=== PATIENT | female | born 1975 | race Caucasian/White ===

== ENCOUNTER 2023-04-28 15:11 | Outpatient (CLI) | payer OTHER, SELFPAY ==
--- NOTE | 2023-04-28 15:19 | MM_ITS ---
WS: [id number] Bilateral screening 3D tomosynthesis digital mammogram, 04/28/2023 Clinical Data: SCREENING Comparison: None. Findings: The breast parenchymal pattern shows fibroglandular tissue. No spiculated masses or clustered calcifi cations are seen. There are no secondary signs of carcinoma. There are lymph nodes in both axilla. MM/[id number] Impression: 1. Negative bilateral mammogram unchanged. 2. Recommend annual screening mammograms. BIRADS: 1-Negative FOLLOW UP: 1 Year Follow-up The CAD dry cleaning checker was used.
== END 2023-04-28 15:12 | disposition home or self-care (01) ==
PROVIDERS: PCP Nurse Practitioner Family; Visit Provider Nurse Practitioner Family
DX: Z12.31 Encounter for screening mammogram for malignant neoplasm of breast (principal)
CPT/HCPCS: 77063; 77067

== ENCOUNTER → 2023-09-23 11:06 | Outpatient (BNVA) | payer OTHER, SELFPAY | PROVIDERS: PCP Nurse Practitioner Family; Visit Provider Nurse Practitioner Family | DX: R00.0 Tachycardia, unspecified (principal); R53.83 Other fatigue; E53.8 Deficiency of other specified B group vitamins; D64.9 Anemia, unspecified; Z79.899 Other long term (current) drug therapy; Z13.6 Encounter for screening for cardiovascular disorders; J45.909 Unspecified asthma, uncomplicated | CPT/HCPCS: 80053; 80061; 81003; 82306; 82607; 83036; 84439; 84443; 84481; 85025 ==

== ENCOUNTER → 2023-12-19 13:09 | Outpatient (BNVA) | payer OTHER, SELFPAY | PROVIDERS: PCP Nurse Practitioner Family; Referring Provider Nurse Practitioner Family; Visit Provider Internal Medicine Pulmonary Disease | DX: J45.909 Unspecified asthma, uncomplicated; R06.00 Dyspnea, unspecified | CPT/HCPCS: 36415; 71046; 82785; 86003 ==

== ENCOUNTER 2023-12-27 12:23 | Outpatient (CLI) | payer OTHER, SELFPAY ==
--- NOTE | 2023-12-27 12:43 | ECG_ITS ---
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 Interpretive Statements NAME OF STUDY: TREADMILL STRESS TEST INDICATION: R/O CAD, PROCEDURE: At the baseline, the patient's blood pressure was 107/81 with a heart rate of 95. The baseline electrocardiogram showed normal sinus rhythm with normal ST-Ts.. The patient exercised for 3 minutes and 45 seconds on a standard Tod protocol. Patient attained a maximum heart rate of 155 beats per minute(95% of the maximum predicted heart rate) with a blood pressure at the peak exercise of 169/65 mm Hg. The EKG at the peak exercise revealed some nonspecific ST change. Patient did not have any chest pain or any significant cardiac arrhythmias with the exercise During the recovery phase, there were no new changes. Blood pressure at the end of the recovery phase was 112/59 mm Hg with a heart rate of 100 per minute. CONCLUSION: 1. No significant EKG changes with the treadmill exercise 2. No exercise-induced chest pain or cardiac arrhythmia 3. Impaired exercise tolerance, attained a maximum of 7.0 METs Electronically Signed On 12-31-2023 18:36:35 CDT by Arsenio Tripathi M.D. [email or web address]
[2023-12-27 12:47] VITALS: BMI 34.2
[2023-12-27 13:15] VITALS: BP 124/60; PULSE 99
== END 2023-12-27 12:24 | disposition home or self-care (01) ==
LOC: CDL 12:24
PROVIDERS: PCP Nurse Practitioner Family; Visit Provider Internal Medicine Pulmonary Disease
DX: Z01.89 Encounter for other specified special examinations (principal)
CPT/HCPCS: 93017

== ENCOUNTER 2024-01-26 06:59 | Outpatient (CLI) | payer OTHER, SELFPAY ==
[2024-01-26 07:31] VITALS: PULSE 77; RESP 18; O2SAT 98
[2024-01-26] MEDS: albuterol 2.5 mg/3 mL Neb INHALATION (07:31)
[2024-01-26 07:36] VITALS: PULSE 79
== END 2024-01-26 07:00 | disposition home or self-care (01) ==
LOC: RT 07:00
PROVIDERS: PCP Nurse Practitioner Family; Visit Provider Internal Medicine Pulmonary Disease
DX: J45.909 Unspecified asthma, uncomplicated (principal)
CPT/HCPCS: 94060; 94618; 94726; 94729; J7613

== ENCOUNTER → 2024-12-11 15:53 | Outpatient (BNVA) | payer OTHER, SELFPAY | PROVIDERS: PCP Nurse Practitioner Family; Visit Provider Nurse Practitioner Family | DX: S80.12XA Contusion of left lower leg, initial encounter (principal); X58.XXXA Exposure to other specified factors, initial encounter | CPT/HCPCS: 73590 ==